=== PATIENT | male | born 1990 ===

== ENCOUNTER 2021-03-11 15:29 | Emergency (ER) | payer SELFPAY ==
[~2021-03-11] VITALS: Ht 167.6 cm; Wt 61.4 kg
[2021-03-11 15:32] VITALS: BP 109/79; Ht 167.6 cm; Wt 61.4 kg
[2021-03-11] MEDS ORDERED: HYDROCODON-ACE1 EAC7 PO (16:20)
[2021-03-11] MEDS ORDERED: IBUPROFEN800 MG PO (16:20)
== END 2021-03-11 17:00 | disposition home or self-care (01) ==
LOC: D.ER 15:29
DX: S62.32 Displaced fracture of shaft of other metacarpal bone (principal); W23.0XXD Caught, crushed, jammed, or pinched between moving objects, subsequent encounter